=== PATIENT | male | born 1995 | race Caucasian/White ===

== ENCOUNTER 2017-10-22 11:57 | Emergency (ER) | payer MEDICAID ==
[2017-10-22 16:03] LABS: UDS - AMPHET NEGATIVE QUAL (NEGATIVE); UDS - BARB NEGATIVE QUAL (NEGATIVE); UDS - BENZO NEGATIVE QUAL (NEGATIVE); UDS - COCAINE NEGATIVE QUAL (NEGATIVE); UDS - OPIATE NEGATIVE QUAL (NEGATIVE); UDS - PCP NEGATIVE QUAL (NEGATIVE); UDS - THC NEGATIVE QUAL (NEGATIVE)
[2017-10-22 16:10] LABS: BASOPHILS 0.9 % (0-2); EOSINOPHILS 1.6 % (0-7); HEMATOCRIT 44.9 % (42.0-54.0); HEMOGLOBIN 15.6 g/dL (13.5-17.5); IMMATURE GRANULOCYTES 0.5 % (0-5); LYMPHOCYTES 37.4 % (15-50); MCH 30.7 pg (26.0-34.0); MCHC 34.7 g/dL (31.0-37.0); MCV 88.4 fL (80.0-100.0); MEAN PLATELET VOLUME 10.9 fL (7.4-10.4); MONOCYTES 11.1 % (2-11); NEUTROPHILS 48.5 % (40-80); PLATELET COUNT 227 10x3/uL (130-400); RBC 5.08 10x6/uL (4.20-6.10); RDW 12.8 % (11.5-14.5); WBC 8.6 10x3/uL (4.8-10.8)
[2017-10-22 16:42] LABS: ALBUMIN 4.1 g/dL (3.4-5.0); ALKALINE PHOSPHATASE 83 U/L (46-116); ALT (SGPT) 34 U/L (10-68); BILIRUBIN - TOTAL 0.37 mg/dL (0.2-1.3); CALC OSMOLALITY 280 mosm/kg (275-300); CALCIUM 9.4 mg/dL (8.5-10.1); CARBON DIOXIDE 28.6 mmol/L (21.0-32.0); CHLORIDE - SERUM 106 mmol/L (98-107); GLUCOSE 85 mg/dL (74-106); MAGNESIUM - SERUM 1.9 mg/dL (1.8-2.4); POTASSIUM - SERUM 4.1 mmol/L (3.5-5.1); PROTEIN - SERUM 7.2 g/dL (6.4-8.2); SODIUM 141 mmol/L (136-145); UREA NITROGEN 16 mg/dL (7-18); eGFR NON AFRICAN AMERICAN > 90 mL/min (90-120)
== END 2017-10-22 17:43 | disposition home or self-care (01) ==
LOC: D.ER 11:57
PROVIDERS: Nurse Practitioner Family
DX: G40.909 Epilepsy, unspecified, not intractable, without status epilepticus (principal); Z91.14 Patient's other noncompliance with medication regimen

== ENCOUNTER 2018-07-01 06:49 | Emergency (ER) | payer MEDICAID ==
[~2018-07-01] VITALS: Ht 185.4 cm; Wt 102.3 kg
[2018-07-01 07:03] VITALS: Ht 185.4 cm; Wt 102.3 kg
[2018-07-01] MEDS ORDERED: LAMICTAL25 MG PO (07:05)
[2018-07-01 07:28] LABS: BASOPHILS 0.7 % (0-2); EOSINOPHILS 1.7 % (0-7); HEMATOCRIT 48.7 % (42.0-54.0); HEMOGLOBIN 16.8 g/dL (13.5-17.5); IMMATURE GRANULOCYTES 0.7 % (0-5); LYMPHOCYTES 28.7 % (15-50); MCH 30.7 pg (26.0-34.0); MCHC 34.5 g/dL (31.0-37.0); MCV 88.9 fL (80.0-100.0); MEAN PLATELET VOLUME 10.4 fL (7.4-10.4); MONOCYTES 8.5 % (2-11); NEUTROPHILS 59.7 % (40-80); PLATELET COUNT 214 10x3/uL (130-400); RBC 5.48 10x6/uL (4.20-6.10); RDW 12.5 % (11.5-14.5); WBC 9.8 10x3/uL (4.8-10.8)
[2018-07-01 07:44] LABS: ALBUMIN 4.1 g/dL (3.4-5.0); ALKALINE PHOSPHATASE 93 U/L (46-116); ALT (SGPT) 84 U/L (10-68); BILIRUBIN - TOTAL 0.35 mg/dL (0.2-1.3); CALC OSMOLALITY 279 mosm/kg (275-300); CALCIUM 9.1 mg/dL (8.5-10.1); CARBON DIOXIDE 26.2 mmol/L (21.0-32.0); CHLORIDE - SERUM 103 mmol/L (98-107); CREATININE - SERUM 1.3 mg/dL (0.6-1.3); GLUCOSE 92 mg/dL (74-106); POTASSIUM - SERUM 4.3 mmol/L (3.5-5.1); PROTEIN - SERUM 7.6 g/dL (6.4-8.2); SODIUM 140 mmol/L (136-145); UREA NITROGEN 16 mg/dL (7-18); eGFR NON AFRICAN AMERICAN 74 mL/min (90-120)
[2018-07-01 07:46] LABS: AMYLASE - SERUM 61 U/L (25-115); LIPASE 262 U/L (73-393)
[2018-07-01 07:56] LABS: TROPONIN-I < 0.017 ng/mL (0.000-0.060)
[2018-07-01] MEDS ORDERED: GABAPENTIN100 MG PO (08:54)
[2018-07-01 09:07] VITALS: BP 130/74
== END 2018-07-01 09:07 | disposition home or self-care (01) ==
LOC: D.ER 06:49
PROVIDERS: Family Medicine
DX: G50.0 Trigeminal neuralgia (principal); K92.1 Melena; G40.909 Epilepsy, unspecified, not intractable, without status epilepticus; R11.0 Nausea

== ENCOUNTER → 2018-08-07 07:00 | Outpatient (CLI) | payer MEDICAID ==
[2018-07-01 07:03] VITALS: BMI 29.7
[~2018-08-07 07:00] MED LIST: GABAPENTIN100 MG PO; LAMICTAL25 MG PO
== END | disposition home or self-care (01) ==
LOC: D.MRI 08-06 07:30
DX: G50.0 Trigeminal neuralgia (principal); R56.9 Unspecified convulsions; R20.0 Anesthesia of skin; R20.2 Paresthesia of skin

== ENCOUNTER 2019-02-23 03:12 | Emergency (ER) | payer OTHER ==
[~2019-02-23] VITALS: Ht 185.4 cm; Wt 109.1 kg
[2019-02-23 03:17] VITALS: Ht 185.4 cm; Wt 109.1 kg
[2019-02-23 03:54] LABS: BASOPHILS 0.2 % (0-2); EOSINOPHILS 0.7 % (0-7); HEMATOCRIT 44.5 % (42.0-54.0); HEMOGLOBIN 15.5 g/dL (13.5-17.5); IMMATURE GRANULOCYTES 0.4 % (0-5); LYMPHOCYTES 20.7 % (15-50); MCHC 34.8 g/dL (31.0-37.0); MCV 86.1 fL (80.0-100.0); MEAN PLATELET VOLUME 10.3 fL (7.4-10.4); MONOCYTES 6.4 % (2-11); NEUTROPHILS 71.6 % (40-80); PLATELET COUNT 235 10x3/uL (130-400); RBC 5.17 10x6/uL (4.20-6.10); RDW 12.8 % (11.5-14.5); WBC 10.1 10x3/uL (4.8-10.8)
[2019-02-23 03:58] LABS: APPEARANCE HAZY (CLEAR); BILIRUBIN NEGATIVE (NEGATIVE); COLOR YELLOW (YELLOW); GLUCOSE NEGATIVE (NEGATIVE); KETONE NEGATIVE (NEGATIVE); NITRITE NEGATIVE (NEGATIVE); PROTEIN NEGATIVE (NEGATIVE); UROBILINOGEN NORMAL (NORMAL)
[2019-02-23 03:59] LABS: BACTERIA FEW /hpf (NONE SEEN); EPITHELIAL CELLS 0-5 /hpf (0-5); WHITE CELLS - URINE 0-5 /hpf (0-5)
[2019-02-23 04:12] LABS: ALBUMIN 4.2 g/dL (3.4-5.0); ANION GAP 13.4 mmol/L (8-16); BILIRUBIN - TOTAL 0.6 mg/dL (0.2-1.3); CARBON DIOXIDE 29.3 mmol/L (21.0-32.0); CREATININE - SERUM 1.4 mg/dL (0.6-1.3); POTASSIUM - SERUM 3.7 mmol/L (3.5-5.1); PROTEIN - SERUM 7.2 g/dL (6.4-8.2)
[2019-02-23] MEDS ORDERED: TYLENOL W/CODEI1 TAB PO (04:34)
[2019-02-23] MEDS ORDERED: FLOMAX0.4 MG PO (04:34)
[2019-02-23 04:48] VITALS: BP 114/72
== END 2019-02-23 04:49 | disposition home or self-care (01) ==
LOC: D.ER 03:12
PROVIDERS: Family Medicine
DX: N20.1 Calculus of ureter (principal); N20.0 Calculus of kidney

== ENCOUNTER → 2019-03-22 15:27 | Outpatient (CLI) | payer OTHER, MEDICAID ==
[2019-02-23 03:17] VITALS: BMI 31.7
[~2019-03-22 15:27] MED LIST changes: +FLOMAX0.4 MG PO; +TYLENOL W/CODEI1 TAB PO
== END | disposition home or self-care (01) ==
LOC: D.RAD 15:27
PROVIDERS: ATTEND Urology
DX: N20.0 Calculus of kidney (principal)

== ENCOUNTER → 2019-04-02 08:04 | Outpatient (CLI) | payer OTHER ==
[2019-02-23 03:17] VITALS: BMI 31.7
[~2019-04-02 08:04] MED LIST changes: +HYDROCODON-ACE1 EAC7 PO; +OMEPRAZOLE40 MG PO
[2019-05-20 11:48] VITALS: BMI 32.9
== END | disposition home or self-care (01) ==
LOC: D.US 08:04
PROVIDERS: ATTEND Internal Medicine Gastroenterology
DX: R10.9 Unspecified abdominal pain (principal); R11.2 Nausea with vomiting, unspecified

== ENCOUNTER 2019-04-08 07:26 | Day surgery (SDC) | payer OTHER ==
[~2019-04-08] VITALS: Ht 185.4 cm; Wt 111.6 kg
[2019-04-08 08:34] VITALS: BP 122/77; Ht 185.4 cm; Wt 111.6 kg
--- NOTE | 2019-04-08 13:50 | OP ---
PATIENT NAME: DION FISCHER MEDICAL RECORD: [id number] LOCATION:[facility] ADMISSION DATE: SURGEON: THONY VERDIN MD DATE OF OPERATION: 04/08/2019 SURGEON: Thony Verdin MD ANESTHESIA: General anesthesia by Oseas Vann CRNA DIAGNOSIS: A 5-mm right renal stone. PROCEDURE: Right extracorporeal shock wave lithotripsy (ESWL). FINDINGS: Radiodense right renal stone. BLOOD LOSS: None. CLINICAL HISTORY: This is a 24-year-old male, who was referred by the Emergency Room for renal colic. Initially he had left renal colic. A CT scan shows multiple bilateral renal stones. The largest stone on the right side is 5 mm and the largest stone on the left side is 4 mm. He had a 4-mm stone at the left UV junction at that time, but he subsequently passed that stone. He comes now to have the 5-mm stone in the right side treated. I viewed the KUB. The stone did not seem to be that big. Also, he was not too anxious to have a right ureteral stent inserted. We will therefore be treating him without a stent. He is not allergic to any medications. 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 DESCRIPTION OF PROCEDURE: The patient was placed in supine position. The stone was targeted. We could target the stone quite nicely. The patient was then given general anesthetic. The stone was targeted in 2 planes and 3000 shocks were given to the stone. The stone was seen to break up. I will see him in followup in 1 month's time with a KUB to check for stone clearance. TRANSINT:[id number] Voice Confirmation ID: [id number] DOCUMENT ID: [id number] THONY VERDIN MD at 1350 CC: [id number] DICTATION DATE: 04/08/19 1210 LANDSCAPE PAINTER: 04/08/19 1221 REG [facility] [address] [place] [address]
== END 2019-04-08 14:10 | disposition home or self-care (01) ==
LOC: D.OPS 07:26 → D.PAN 12:00 → D.OPS 14:10
PROVIDERS: ATTEND Urology
DX: N20.0 Calculus of kidney (principal); Z01.812 Encounter for preprocedural laboratory examination

== ENCOUNTER → 2019-04-16 07:46 | Outpatient (CLI) | payer OTHER ==
[2019-04-08 08:34] VITALS: BMI 32.5
== END | disposition home or self-care (01) ==
LOC: D.NM 07:46
PROVIDERS: ATTEND Internal Medicine Gastroenterology
DX: R10.9 Unspecified abdominal pain (principal); R11.0 Nausea

== ENCOUNTER 2019-05-20 10:43 | Day surgery (SDC) | payer OTHER ==
[~2019-05-20] VITALS: Ht 185.4 cm; Wt 112.9 kg
[2019-05-20 11:48] VITALS: BP 131/76; Ht 185.4 cm; Wt 112.9 kg
--- NOTE | 2019-05-20 12:55 | NUR ---
PATIENT RETURNS FROM SURGERY WITH REPORT FROM ALLAN PRASAD CRNA THAT PATIENT IS TO BE DISCHARGED, NO PROCEDURE WAS DONE, NO ANESTHESIA GIVEN. REPORT IS THAT DR VERDIN DOES NOT SEE A KIDNEY STONE NOW SO PROCEDURE IS CANCELLED AND PATIENT IS TO BE DISCHARGED. DR VERDIN PAGED BECAUSE NO ORDERS FROM DR VERDIN FOUND, DR VERDIN STATES PATIENT IS TO BE DISCHARGED NOW, HE MAY CALL OFFICE IS HAS FURTHER SYMPTOMS. PATIENT SERVED LIQUIDS AND IV DC'D
== END 2019-05-20 13:00 | disposition home or self-care (01) ==
LOC: D.OPS 10:43
PROVIDERS: ATTEND Urology
DX: N20.0 Calculus of kidney (principal)